=== PATIENT | female | born 1975 | race Two or more races ===

== ENCOUNTER 2017-07-26 07:03 | Emergency (ER) | payer OTHER ==
[~2017-07-26] VITALS: Ht 154.9 cm; Wt 50.0 kg
[~2017-07-26 07:03] MED LIST: Z.0.NO CURRENT MEDS
[2017-07-26 07:11] VITALS: BP 123/70; PULSE 75; RESP 15; TEMP 98.4; O2SAT 97
[2017-07-26] MEDS ORDERED: BACT800T5 PO (07:39)
[2017-07-26] MEDS ORDERED: CEPH-460 PO (07:39)
[2017-07-26] MEDS ORDERED: ACYC800T PO (07:39)
--- NOTE | 2017-07-26 07:40 | PD ---
HPI Chief Complaint: Eye Problems/Injury Time Seen by Provider: 07:34 Travel History International Travel<30 days: No Contact w/Intl Traveler<30days: No Traveled to known affect area: No History of Present Illness HPI 41-year-old female presents to the emergency Department with complaint of a painful, itchy lesion to the lateral aspect of her right eye times one week. She was possibly bitten by an insect at first, but now is concerned it may be shingles. The pain radiates to her right scalp area. She says she can feel some bumps in her hair. Pain is also burning and tingling sensation. Reports lymphadenopathy behind her ear and down the right side of her neck. Denies fever, vomiting. Denies change in vision. Denies eye pain. Rates pain /. Took Tylenol prior to arrival. Has been using triamcinolone cream, prescribed by her primary care provider Dr. Luis, to the lesion with no relief of symptoms. Has no other medical complaints. No known allergies. No other modifying factors or associated signs and symptoms. PFSH Past Medical History Diminished Hearing: No Immunizations Current: Yes ?: Unknown LMP: 07/17/17 Social History Alcohol Use: No Tobacco Use: No Substance Use: No Allergies-Medications (Allergen,Severity, Reaction): Coded Allergies: No Known Allergies (Verified , 12/02/08) Reported Meds & Prescriptions Reported Meds & Active Scripts Active Keflex (Cephalexin) 500 Mg Cap 500 Mg PO Q6H 10 Days Bactrim DS (Sulfamethoxazole-Trimethoprim) 800-160 Mg Tab 1 Tab PO BID 10 Days Acyclovir 800 Mg Tab 800 Mg PO 5 TIMES A DAY 7 Days Reported No Current Meds (Miscellaneous Medication[place] [facility] [place] Except as stated in HPI: all other systems reviewed are Neg Physical Exam Narrative GENERAL: Well-nourished, well-developed female patient, in no acute distress; afebrile, nontoxic-appearing SKIN: Warm and dry. Single scalp lesion noted to the lateral aspect of the right eye. No drainage, signs of infection or surrounding erythema. Patient has tenderness on light palpation around the eye and to the right scalp area. There are a few erythemic spots noted to the right parietal scalp area. Right postauricular and cervical node lymphadenopathy on palpation. HEAD: Atraumatic. Normocephalic. EYES: Pupils equal and round. No scleral icterus. No injection or drainage. ENT: Mucosa pink and moist. Airway patent. NECK: Trachea midline. CARDIOVASCULAR: Regular rate. . RESPIRATORY: No accessory muscle use. GASTROINTESTINAL: Flat. MUSCULOSKELETAL: No obvious deformities. No clubbing. No cyanosis. No edema. NEUROLOGICAL: Awake and alert. Oriented 3. No obvious cranial nerve deficits. Motor grossly within normal limits. Normal speech. PSYCHIATRIC: Appropriate mood and affect; insight and judgment normal. Data Data Last Documented VS Vital Signs Date Time Temp Pulse Resp B/P (MAP) Pulse Ox O2 Delivery O2 Flow Rate FiO2 07/26/17 07:11 98.4 75 15 123/70 (87) 97 Orders Orders Ed Discharge Order (07/26/17 07:41) [facility] Medical Decision Making Medical Screen Exam Complete: Yes Emergency Medical Condition: Yes Medical Record Reviewed: Yes Differential Diagnosis Shingles, nonspecific rash, preseptal cellulitis Narrative Course 41-year-old female with a nonspecific skin eruption to her right face. Patient is afebrile and nontoxic-appearing. Considering shingles. Patient has lymphadenopathy to right postauricular and right lateral neck. I'll treat the patient with acyclovir for possible shingles and antibiotics for possible infection. Acyclovir, Keflex, Bactrim prescribed for home. patient to follow up with ophthalmology in 1 day. Instructed patient to follow up with primary care provider. Patient verbalizes understanding and agreement with treatment plan. Patient is medically cleared and stable for discharge. Discussed reasons to return to the emergency department. Patient agrees with treatment plan. The patients vital signs are stable and the patient is stable for outpatient follow-up and treatment. Patient discharged home, stable and in no acute distress. 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 Primary Care Physician Patient Instructions: Acute Rash (ED), General Instructions, Shingles (ED) Departure Forms: Tests/Procedures, Work Release Enter return to work date: Jul 30, 2017 Additional Instructions: Shingles is contagious Keep area covered with clothing to avoid spreading to others Wash hands frequently Take medications as prescribed Cold, wet compresses to the rash to help relieve itching and pain as needed Cool Bath to help relieve itching and pain as needed Follow-up with a primary care provider Return to the emergency department immediately with worsening of symptoms Med/Other Pt SpecificInfo: Prescription(s) given Scripts Cephalexin (Keflex) 500 Mg Cap 500 MG PO Q6H for Infection for 10 Days, #40 CAP 0 Refills Prov: Tammy Dorantes 07/26/17 Sulfamethoxazole-Trimethoprim (Bactrim DS) 800-160 Mg Tab 1 TAB PO BID for Infection for 10 Days, #20 TAB 0 Refills Prov: Tammy Dorantes 07/26/17 Acyclovir (Acyclovir) 800 Mg Tab 800 MG PO 5 TIMES A DAY for Mgmt Viral Infection for 7 Days, TAB 0 Refills Prov: Tammy Dorantes 07/26/17 Disposition: 01 DISCHARGE HOME Condition: Stable Tammy Dorantes Jul 26, 2017 07:40
== END 2017-07-26 07:55 | disposition home or self-care (01) ==
LOC: NEPK 07:03
DX: R21 Rash and other nonspecific skin eruption (principal); R59.0 Localized enlarged lymph nodes
CPT/HCPCS: 99284

== ENCOUNTER 2017-11-19 14:19 | Emergency (ER) | payer OTHER ==
[~2017-11-19 14:19] MED LIST changes: +ACYC800T PO; +BACT800T5 PO; +CEPH-460 PO
--- NOTE | 2017-11-19 14:24 | PD ---
HPI Chief Complaint: Exposure to Blood/Body Fluids Time Seen by Provider: 14:23 Travel History International Travel<30 days: No Contact w/Intl Traveler<30days: No History of Present Illness HPI 41-year-old female employee of [employer] presents emergency department with needlestick injury to the right distal IV middle finger. Patient states she was stuck with a suture needle through her glove, she immediately degloved and wash the area thoroughly and made it bleed. The patient that was being worked on, will have blood drawn. Patient states she had her hepatitis B vaccinations. Bleeding is currently nonexistent. She states it was a very small pinhole type wound. She has no pain. She has no known drug allergies. PFSH Past Medical History Diminished Hearing: No Immunizations Current: Yes Social History Alcohol Use: No Tobacco Use: No Substance Use: No Allergies-Medications (Allergen,Severity, Reaction): Coded Allergies: No Known Allergies (Verified , 12/02/08) Reported Meds & Prescriptions Reported Meds & Active Scripts Active Keflex (Cephalexin) 500 Mg Cap 500 Mg PO Q6H 10 Days Bactrim DS (Sulfamethoxazole-Trimethoprim) 800-160 Mg Tab 1 Tab PO BID 10 Days Acyclovir 800 Mg Tab 800 Mg PO 5 TIMES A DAY 7 Days Reported No Current Meds (Miscellaneous Medication) Misc Review of Systems Except as stated in HPI: all other systems reviewed are Neg General / Constitutional: No: Fever Eyes: No: Visual changes HENT: No: Headaches Cardiovascular: No: Chest Pain or Discomfort Respiratory: No: Shortness of Breath Gastrointestinal: No: Abdominal Pain Genitourinary: No: Dysuria Musculoskeletal: No: Pain Skin: Positive Lesions, No Rash Neurologic: No: Weakness Psychiatric: No: Depression Endocrine: No: Polydipsia Hematologic/Lymphatic: No: Easy Bruising Physical Exam Narrative GENERAL: Patient appears in no acute distress SKIN: Warm and dry. Normal color. Normal turgor. There is no visible injury upon inspection of the right hand. HEAD: Atraumatic. Normocephalic. EYES: Pupils equal and round. No scleral icterus. No injection or drainage. ENT: No nasal bleeding or discharge. Mucous membranes pink and moist. Pharynx is clear. Airway is patent. NECK: Trachea midline. Supple and nontender CARDIOVASCULAR: Regular rate and rhythm. RESPIRATORY: No accessory muscle use. Clear to auscultation. Breath sounds equal bilaterally. MUSCULOSKELETAL: Extremities without clubbing, cyanosis, or edema. No obvious deformities. NEUROLOGICAL: Awake and alert. No obvious cranial nerve deficits. Motor grossly within normal limits. Five out of 5 muscle strength in the arms and legs. Normal speech. PSYCHIATRIC: Appropriate mood and affect; insight and judgment normal. Data Data Orders Orders Ed Discharge Order (11/19/17 14:50) MDM Medical Decision Making Medical Screen Exam Complete: Yes Emergency Medical Condition: Yes Differential Diagnosis Workplace injury. Needle fingerstick. Post exposure prophylaxis. Narrative Course Postexposure packet is reviewed with the patient. Based on the patient's history and physical I do not recommend postexposure prophylaxis at this time. Patient agrees. Labs are drawn as per postexposure protocol. Work comp forms are completed. Patient returns to work and will follow up with employee med as discussed Diagnosis Primary Impression: Work related injury Additional Impression: Needle exposure Qualified Codes: X58.XXXA - Exposure to other specified factors, initial encounter Referrals: Employ Med Patient Instructions: Postexposure Prophylaxis (ED), General Instructions Additional Instructions: Based on the patient's history and physical I do not recommend postexposure prophylaxis at this time. Patient agrees. Labs are drawn as per postexposure protocol. Work comp forms are completed. Patient returns to work and will follow up with employee med as discussed Med/Other Pt SpecificInfo: No Meds Exist/No RX given Disposition: 01 DISCHARGE HOME Condition: Stable Alf Antonio Nov 19, 2017 14:24
== END 2017-11-19 15:15 | disposition home or self-care (01) ==
LOC: NEPD 14:19
DX: S61.242A Puncture wound with foreign body of right middle finger without damage to nail, initial encounter (principal); X58.XXXA Exposure to other specified factors, initial encounter; Y99.0 Civilian activity done for income or pay
CPT/HCPCS: 99283